=== PATIENT | male | born 1935 | race Caucasian/White ===

== ENCOUNTER 2018-06-17 23:12 | Emergency (ER) | payer OTHER ==
[~2018-06-17] VITALS: Ht 177.8 cm; Wt 79.8 kg
[~2018-06-17 23:12] MED LIST: ASPIR 8181 MG PO; ASPIRIN EC81 M1 PO; ATENOLOL 50MG T50 MG PO; CENTRUM SILVER1 EAC4 PO; CIPROFLOXACIN500 M1 PO; COLACE100 MG PO; FLAGYL500 MG PO; FLOMAX0.4 MG PO; FLORANEX TABLE1 EACH PO; FUROSEMIDE 20 M20 MG PO; HYDROCODON-ACE1 EAC7 PO; IRON PO; IRON-150 TABLE1 EACH PO; KEFLEX500 MG PO; KLOR-CON 1010 MEQ PO; LEVOXYL50 MCG; LISINOPRIL10 MG PO; LUTEIN; LUTEIN PO; LYCOPENE; LYCOPENE PO; MAGOX 400400 MG PO; RAPAFLO8 MG PO; SENNA PO; SPIRIVA INH; SYNTHROID125 MCG PO; TRICOR145 MG PO; ULORIC40 MG PO
[2018-06-18] MEDS ORDERED: KEFLEX500 M1 PO (01:49)
[2018-06-18 02:30] VITALS: BP 149/73
== END 2018-06-18 02:30 | disposition home or self-care (01) ==
LOC: ER 23:12
DX: R04.0 Epistaxis (principal); G47.00 Insomnia, unspecified; I10 Essential (primary) hypertension; E78.5 Hyperlipidemia, unspecified; M10.9 Gout, unspecified; I71.4 Abdominal aortic aneurysm, without rupture; E03.9 Hypothyroidism, unspecified; M19.90 Unspecified osteoarthritis, unspecified site; G89.29 Other chronic pain; I25.10 Atherosclerotic heart disease of native coronary artery without angina pectoris; M54.9 Dorsalgia, unspecified; J44.9 Chronic obstructive pulmonary disease, unspecified; L40.9 Psoriasis, unspecified; Z85.46 Personal history of malignant neoplasm of prostate; Z85.118 Personal history of other malignant neoplasm of bronchus and lung; Z85.818 Personal history of malignant neoplasm of other sites of lip, oral cavity, and pharynx; Z87.891 Personal history of nicotine dependence; Z88.8 Allergy status to other drugs, medicaments and biological substances; Z86.2 Personal history of diseases of the blood and blood-forming organs and certain disorders involving the immune mechanism; Z95.5 Presence of coronary angioplasty implant and graft

== ENCOUNTER → 2019-03-16 | Outpatient (CLI) | payer OTHER ==
[~2019-03-16] MED LIST changes: +KEFLEX500 M1 PO
== END ==
LOC: HYPER 07:35
DX: L89.152 Pressure ulcer of sacral region, stage 2 (principal); L89.322 Pressure ulcer of left buttock, stage 2; L89.311 Pressure ulcer of right buttock, stage 1; L89.321 Pressure ulcer of left buttock, stage 1; J44.9 Chronic obstructive pulmonary disease, unspecified; Z85.46 Personal history of malignant neoplasm of prostate; Z85.118 Personal history of other malignant neoplasm of bronchus and lung; Z87.891 Personal history of nicotine dependence

== ENCOUNTER → 2019-04-10 | Outpatient (CLI) | payer OTHER | LOC: HYPER 08:07 | DX: R21 Rash and other nonspecific skin eruption (principal); R23.4 Changes in skin texture; J44.9 Chronic obstructive pulmonary disease, unspecified; Z85.46 Personal history of malignant neoplasm of prostate; Z85.118 Personal history of other malignant neoplasm of bronchus and lung; Z87.891 Personal history of nicotine dependence ==

== ENCOUNTER → 2019-04-27 | Outpatient (CLI) | payer OTHER | LOC: HYPER 08:16 | DX: L30.9 Dermatitis, unspecified (principal); R21 Rash and other nonspecific skin eruption; R23.4 Changes in skin texture; J44.9 Chronic obstructive pulmonary disease, unspecified; Z85.46 Personal history of malignant neoplasm of prostate; Z85.118 Personal history of other malignant neoplasm of bronchus and lung; Z87.891 Personal history of nicotine dependence ==

== ENCOUNTER 2019-05-11 09:47 | Emergency (ER) | payer OTHER ==
[~2019-05-11] VITALS: Ht 177.8 cm; Wt 77.6 kg
[~2019-05-11 09:47] MED LIST changes: -AUGMENTIN 875-1 EACH PO; -COUGH SYRU100 MG/5 M PO; -DOXYCYCLINE 10100 MG PO; -LEVOTHYROXINE88 MCG PO; -MUCINEX DM ER1 EACH PO; -SUPER THERAVIT1 EACH PO; -TESSALON PERLE100 M1 PO; -VENTOLIN HFA 1818 GM INH
[2019-05-11] MEDS ORDERED: SUPER THERAVIT1 EACH PO (10:07)
[2019-05-11] MEDS ORDERED: DOXYCYCLINE 10100 MG PO (10:07)
[2019-05-11 10:58] LABS: BASOPHILS 0.2 % (0.0-2.0); EOSINOPHILS 1.8 % (0.0-3.0); HEMATOCRIT 30.2 % (42.0-52.0); HEMOGLOBIN 10.1 gm/dL (14.0-18.0); LYMPHOCYTES 5.2 % (24.0-44.0); MCH 33.4 pg (26.0-34.0); MCHC 33.6 g/dL (28.0-37.0); MCV 99.4 fL (80.0-100.0); MONOCYTES 11.1 % (1.0-8.0); PLATELET COUNT 124 thou/uL (150-400); POLYS 81.7 % (36.0-66.0); RBC 3.04 mil/uL (4.50-6.00); RDW 17.3 % (10.5-14.5); WBC 9.8 thou/uL (4.0-11.0)
[2019-05-11 10:59] LABS: ANION GAP 7 mmol/L (7-16); BUN 44 mg/dL (7-18); CHLORIDE 103 mmol/L (98-107); CO2 30 mmol/L (21-32); CREATININE 1.6 mg/dL (0.7-1.3); GLUCOSE 143 mg/dL (74-106); SODIUM 140 mmol/L (136-145)
[2019-05-11 11:09] LABS: ALBUMIN 3.4 g/dL (3.4-5.0); SGOT 35 U/L (15-37); SGPT 22 U/L (30-65); TOTAL BILIRUBIN 0.6 mg/dL (<0.1-1.0); TOTAL PROTEIN 7.8 g/dL (6.4-8.2); TROPONIN-I <0.06 ng/mL (<0.06)
[2019-05-11] MEDS ORDERED: TESSALON PERLE100 M1 PO (11:20)
[2019-05-11] MEDS ORDERED: VENTOLIN HFA 1818 GM INH (11:37)
[2019-05-11] MEDS ORDERED: MUCINEX DM ER1 EACH PO (11:37)
[2019-05-11 12:01] VITALS: BP 141/44
== END 2019-05-11 12:35 | disposition home or self-care (01) ==
LOC: ER 09:47
PROVIDERS: Emergency Medicine
DX: J20.9 Acute bronchitis, unspecified (principal); J44.1 Chronic obstructive pulmonary disease with (acute) exacerbation; C91.40 Hairy cell leukemia not having achieved remission; I12.9 Hypertensive chronic kidney disease with stage 1 through stage 4 chronic kidney disease, or unspecified chronic kidney disease; I71.4 Abdominal aortic aneurysm, without rupture; N18.9 Chronic kidney disease, unspecified; E78.5 Hyperlipidemia, unspecified; E03.9 Hypothyroidism, unspecified; M10.9 Gout, unspecified; M54.9 Dorsalgia, unspecified; G89.29 Other chronic pain; Z95.5 Presence of coronary angioplasty implant and graft; Z86.2 Personal history of diseases of the blood and blood-forming organs and certain disorders involving the immune mechanism; Z85.819 Personal history of malignant neoplasm of unspecified site of lip, oral cavity, and pharynx; Z87.891 Personal history of nicotine dependence; Z91.041 Radiographic dye allergy status; Z88.8 Allergy status to other drugs, medicaments and biological substances

== ENCOUNTER → 2019-05-11 | Outpatient (CLI) | payer OTHER ==
[~2019-05-11] MED LIST changes: +AUGMENTIN 875-1 EACH PO; +COUGH SYRU100 MG/5 M PO; +DOXYCYCLINE 10100 MG PO; +LEVOTHYROXINE88 MCG PO; +MUCINEX DM ER1 EACH PO; +SUPER THERAVIT1 EACH PO; +TESSALON PERLE100 M1 PO; +VENTOLIN HFA 1818 GM INH
--- NOTE | 2019-05-12 07:54 | EKG ---
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: AMY : 1935 Requested By: Han Trujillo Order Number: [id number] MD: Brett Cates Measurements Intervals [place] Rate: 96 P: 56 ME: 223 QRS: -87 QRSD: 154 T: 27 QT: 385 QTc: 487 Interpretive Statements 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
== END ==
LOC: HYPER
DX: L89.321 Pressure ulcer of left buttock, stage 1 (principal); L89.311 Pressure ulcer of right buttock, stage 1; L30.9 Dermatitis, unspecified; J44.9 Chronic obstructive pulmonary disease, unspecified; R21 Rash and other nonspecific skin eruption; R23.4 Changes in skin texture; Z85.46 Personal history of malignant neoplasm of prostate; Z85.118 Personal history of other malignant neoplasm of bronchus and lung; Z87.891 Personal history of nicotine dependence

== ENCOUNTER 2019-05-19 15:43 | Inpatient (IN) | payer OTHER ==
[~2019-05-19] VITALS: Ht 177.8 cm; Wt 75.3 kg
[~2019-05-19 15:43] MED LIST changes: +DOXYCYCLINE 10100 MG PO; +MUCINEX DM ER1 EACH PO; +SUPER THERAVIT1 EACH PO; +TESSALON PERLE100 M1 PO; +VENTOLIN HFA 1818 GM INH
[2019-05-19 16:48] VITALS: BP 135/52
--- NOTE | 2019-05-19 18:22 | NUR ---
PT IS DIRECT ADMIT D/T PNEUMONIA AND DYSPHAGIA. AT BEDSIDE. VSS. PT A&OX4. NO C/O PAIN. PT ON RA. PHOTO OF REDNESS ON BOTTOM IN CHART. ADMISSION ORDERS COMPLETE. PT WILL CONTINUE TO MONITOR.
[2019-05-19 20:07] LABS: HEMATOCRIT 29.8 % (42.0-52.0); HEMOGLOBIN 10.1 gm/dL (14.0-18.0); MCH 33.1 pg (26.0-34.0); MCHC 33.8 g/dL (28.0-37.0); MCV 97.9 fL (80.0-100.0); RBC 3.04 mil/uL (4.50-6.00); RDW 17.9 % (10.5-14.5); WBC 7.2 thou/uL (4.0-11.0)
[2019-05-19 20:26] LABS: ALBUMIN 3.2 g/dL (3.4-5.0); CALCIUM 9.3 mg/dL (8.5-10.1); CREATININE 1.4 mg/dL (0.7-1.3); TOTAL PROTEIN 7.2 g/dL (6.4-8.2)
[2019-05-19 20:49] VITALS: BP 151/63
[2019-05-19 21:45] LABS: TSH 4.683 uIU/mL (0.358-3.740)
[2019-05-20] VITALS (7 sets, daily range): BP systolic 114–141; BP diastolic 48–64
--- NOTE | 2019-05-20 05:17 | NUR ---
ASSUMED PT CARE AT 1900. PT A/OX4, [place], VITAL SIGNS STABLE, ASSESSMENT CHARTED. NO COMPLAINTS OF PAIN OR SOB. ABX STARTED, RESTED WELL THROUGH THE NIGHT. WILL CONTINUE TO MONITOR.
[2019-05-20 05:42] LABS: CALCIUM 9.3 mg/dL (8.5-10.1); CREATININE 1.4 mg/dL (0.7-1.3); MAGNESIUM 1.9 mg/dL (1.8-2.4); POTASSIUM 4.2 mmol/L (3.5-5.1)
[2019-05-20 05:49] LABS: HEMATOCRIT 25.8 % (42.0-52.0); HEMOGLOBIN 8.9 gm/dL (14.0-18.0); MCH 33.5 pg (26.0-34.0); MCHC 34.4 g/dL (28.0-37.0); MCV 97.2 fL (80.0-100.0); RBC 2.66 mil/uL (4.50-6.00); RDW 17.6 % (10.5-14.5); WBC 6.1 thou/uL (4.0-11.0)
[2019-05-20] MEDS ORDERED: LEVOTHYROXINE88 MCG PO (08:04)
--- NOTE | 2019-05-20 13:16 | NUR ---
I have reviewed the documentation by SHERYL DUFFY from 05/20/19 to 05/20/19 and I concur with it. MELANIE LOVELACE
--- NOTE | 2019-05-20 16:55 | NUR ---
met with patient, just left for the day. Patient resides at home with . All needs on one level of home. Patient uses a walker for ambulation. patient admits with cough, dysphagia. He completed video swallow. GI discussed options with including peg tube. Patient participated with therapy who recommends post acute care. Nutrional status to be addressed. DC planning, possible post acute care, Home pallative care or hospice.
--- NOTE | 2019-05-20 17:48 | NUR ---
ASSUMED CARE OF PT AT SHIFT CHANGE. ASSESSMENTS CHARTED. UNABLE TO GIVE MEDS D/T DYSPHAGIA. VSS. PT A&OX4. NO C/O PAIN. WORKED WITH PT/OT. PT IS SBA WITH WALKER D/T WEAKNESS AND DIZZYNESS. PT FAILED VIDEO SWALLOW TEST, NOW PT AND FAMILY DECIDING WHETHER TO DO A PEG TUBE OR NOT. WILL CONTINUE TO MONITOR AND FOLLOW POC.
--- NOTE | 2019-05-20 19:08 | HC ---
[facility] [place] [address] CONSULTATION Name: PRASANNA MODI Room #: 206-P [facility] IN ..#: [id number] Admission: 05/19/19 Attend Phys: Osbaldo Motta MD Discharge: Date of : 35 Report #: [id number] THIS REPORT FOR: //name// CC: Osbaldo Elena MD REASON FOR CONSULTATION: Persistent dyspnea, dysphagia, weight loss. HISTORY OF PRESENT ILLNESS: The patient is an 84-year-old white male who was referred by Dr. Leroy Elena for evaluation of persistent bronchitic symptoms. He has known COPD. The patient has smoked about 50+ years, smoking more than a pack a day. He quit smoking 19 years ago. He was diagnosed with COPD about 8 years ago. He is normally on Spiriva. He is not oxygen dependent. He was doing fairly well until about 4 weeks ago, he started to develop dysphagia. Following this, he started to lose weight. He then developed worsening muscle weakness. Otherwise, denies any fever, night sweats or chills, chest pain, productive cough. He has an extensive medical history. He was diagnosed with oral cancer, undergoing total tooth extraction in 2000, local resection. 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 He is followed closely by Dr. Flowers. For his prostate cancer, he underwent radiation therapy in 2013. He was also diagnosed with lung cancer, undergoing radiation therapy in 2014. Detail of this is not clear at this moment. More than a month ago, he was diagnosed with pressure ulcer. He has been seen by Wound Care. According to the , his health has been declining over the past month. The patient lives with his and she is the sole caregiver. The notes that he has not undergone evaluation regarding his dysphagia. PAST MEDICAL HISTORY: As mentioned above including COPD, history of tobacco use, prostatic cancer as mentioned above, hairy cell leukemia as mentioned above, oral cancer diagnosed in 2000, history of lung cancer 2014, undergoing radiation therapy and details not clear, aortic aneurysm status post aortic stent placement in 2012, insomnia, hypertension, hyperlipidemia, chronic bilateral lower extremity edema, anemia, gout, hypothyroidism, psoriasis, chronic back pain, stage 2 pressure ulcer involving the gluteal area over the past 3 months as mentioned above, hearing impairment and COPD. PAST SURGICAL HISTORY: As mentioned above including total tooth extraction, [facility] [address] [place] [address] CONSULTATION Name: PRASANNA MODI Room #: 206-P [facility] IN ..#: [id number] Admission: 05/19/19 Attend Phys: Osbaldo Motta MD Discharge: Date of : 35 Report #: [id number] bilateral cataract surgery, lid surgery, prior neck surgery. ALLERGIES: FENOFIBRATE, which causes nausea, vomiting, diarrhea; NEXIUM causes diarrhea; CONTRAST DYE, reactions unspecified. MEDICATIONS: List reviewed in the chart and this include Uloric 40 mg once a day, Lasix 20 mg once a day, Synthroid 88 mcg once a day, magnesium supplements, potassium supplements, Flomax 0.4 mg once a day, Spiriva once a day. FAMILY HISTORY: Both parents . Medical problems not specified. SOCIAL HISTORY: Tobacco history as mentioned above. Quit smoking 19 years ago. Denies any alcohol use. He is and lives with his . REVIEW OF SYSTEMS: As mentioned above. It is notable for progressive weight loss, muscle weakness and debility. PHYSICAL EXAMINATION: VITAL SIGNS: Temperature is 97.7 degrees Fahrenheit, pulse is 82, respiratory rate is 20, blood pressure is 90/52 mmHg, 88/52 on the left arm, saturation 94% on room air. GENERAL: He appears mildly emaciated, weak, ashen looking. HEENT: Normocephalic, atraumatic. NECK: Supple, without lymphadenopathy or thyromegaly. CHEST: Breath sounds are fair air movement, crackles in the bases, more so on the left base than the right. Mild expiratory wheezes. CARDIOVASCULAR: Normal S1, S2. There are no murmurs or gallop. There is no JVD, no bruit. Pulses are 2+/4+ bilaterally. ABDOMEN: Soft, nontender, no organomegaly or masses felt. GENITOURINARY: Deferred. RECTAL: Deferred. EXTREMITIES: There is no cyanosis or clubbing. Notable 1-2+ bilateral pretibial edema. NEUROLOGIC: Grossly intact, though appears to be moderately weak. LABORATORY DATA: Pending. Prior chest x-ray has been reviewed. He has a right apical nodule previously [place] [address] chest. Current chest x-ray reviewed and showing mild haziness in the right apex, otherwise no obvious infiltrates. The rest of the laboratory data is pending. IMPRESSION: 1. Progressive weight loss, dysphagia, weakness in this 84-year-old white male. Etiology is unclear, but concerning for occult neoplasm in particular gastrointestinal tract. We will recommend GI consultation, video swallow, etc. 2. Persistent dyspnea, cough, examination revealed crackles. The patient may have an ongoing lower respiratory tract infection or pneumonia. [address] [place] [address] CONSULTATION Name: PRASANNA MODI Room #: 206-P ADM IN .R.#: [id number] Admission: 05/19/19 Attend Phys: Osbaldo Motta MD Discharge: Date of : 35 Report #: [id number] 3. Chronic obstructive pulmonary disease, very severe impairment, baseline FEV1 of 0.53 liters or 19% predicted. 4. Progressive muscle weakness, debility due to above, ? other causes such as neuromuscular. 5. Multiple cancer history in the past including oral cancer in 2000, prostate cancer, hairy cell leukemia, history of lung cancer status post radiation therapy in 2014. 6. Abdominal aortic aneurysm, status post stent placement. 7. Chronic back pain, status post prior back surgery. 8. Chronic lower extremity edema. 9. Gout. 10. Hypothyroidism. 11. Pressure ulcer involving the gluteal fold stage 2, recent onset over the last 3 months. 12. Cachexia, suspect severe mild protein-calorie malnutrition. RECOMMENDATION: With recommend broad-spectrum antibiotics for presumed pneumonia, bronchodilators and corticosteroids. We would also recommend evaluating dysphagia and weight loss, GI consultation will be recommended along with swallowing evaluation. Nutritional status also should be evaluated. Imaging study of the chest may be helpful given his past history of lung cancer along with right apical nodule. With worsening weakness and malnutrition over the past month or so, the patient may benefit from extended facility following this hospitalization. We will defer to primary medicine team and case management. Additional recommendation should also include recommend DVT and GI prophylaxis. Thank you for the consultation. <ELECTRONICALLY SIGNED> By: Kirk Henderson MD 05/20/19 [id number] Kirk Henderson MD /ellen
[2019-05-21 00:09] VITALS: BP 133/65
--- NOTE | 2019-05-21 01:35 | NUR ---
PATIENT IS AN IN-HOUSE TRANSFER FROM THE CORONARY CARE UNIT. PATIENT ARRIVED AT APPROX. 1930, IS IN CHAIR WITH FAMILY AT BEDSIDE. ASSUMED CARE OF PATIENT SHORTLY AFTER TRANSFER. P[ATIENT IS A&OX4 WITH SOME EXPRESSIVE APHASIA D/T NO TEETH AND PART OF TOUNGE MISSING. PATIENT IS NPO D/T FAILING SWALLOW STUDY BUT HAS MOISTURE SWABS AT BEDSIDE TO BE USED NEEDED. VSS, O2 SAT IS 93% ON ROOM AIR. PATIENT DID NOT RECIEVE HIS PO MUCINEX TONIGHT. FEED PROJECT ENGINEER PRACTIONER CALLED TO D/C PO MEDS AND START IV PUSHES SCOTT. PHARMACY TO CALL BACK W/ VERIFICATION. PATIENT VOIDED 100CC AROUND MIDNIGHT. WILL CONTINUE TO MONITOR URINARY FUNCTION D/T RETENTION. PATIENT HAS A HX OF REFUSING STRAIGHT CATHERIZATION. EDUCATION TO BE REINFORCED IN AM AFTER SCANNING BLADDER. ASSESSMENT CHARTED, PATIENT DENIES PAIN OR ANY NEEDS AT THIS TIME. PATIENT WILL REMAIN IN RECLINER CHAIR W/ FEET ELEVATED TONIGHT. PATIENT IS PENDING DECISION ON PEG PLACEMENT OR PALLIATIVE CARE. FALL PRECAUTIONS IN PLACE. WILL CONTINUE TO MONITOR AND FOLLOW PLAN OF CARE
--- NOTE | 2019-05-21 04:54 | NUR ---
SPOKE TO PHARMACIST REGARDING NEW ORDERS FOR SYNTHROID; PATIENT WILL START RECIEVING IV SYNTHROID @ APPROPRIATE DOSE. MUCINEX TO BE HELD UNTIL PROVIDER AND PATIENT DECIDE WHAT PLAN TO FOLLOW. FLOMAX IS HELD ALSO; PATIENT WILL BE BLADDER SCANNED QSHIFT AND NEEDED. WILL CONTINUE TO MONITOR
--- NOTE | 2019-05-21 05:44 | HC ---
[facility] [place] [address] [place] [address] CONSULTATION Name: PRASANNA MODI Room #: 403-P [facility] IN .R.#: [id number] Admission: 05/19/19 Attend Phys: Osbaldo Motta MD Discharge: Date of : 35 Report #: [id number] THIS REPORT FOR: //name// CC: Osbaldo Elena MD DATE OF SERVICE: 05/20/2019 NEUROLOGY CONSULTATION The patient of Dr. Leroy Elena and Dr. Osbaldo Motta. CHIEF COMPLAINT: This is a very pleasant 84-year-old male whom I am asked to evaluate for possible PEG tube placement due to his oropharyngeal dysphagia which is severe. It has been recommended that he be n.p.o. completely by speech therapy based on their findings. The patient has had pulmonary aspiration and has bilateral aspiration pneumonia. I spoke with the patient and his at length about the speech therapy, swallow study results and we discussed all the details completely. PAST MEDICAL HISTORY: Significant for hairy cell leukemia. He has a new spiculated lung mass. 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 He has a history of prostate cancer. He has a history of COPD, decubitus ulcers. He has been losing weight lately, unable to eat much, coughing a lot. He has a pneumonia. He has a history of diverticulitis, hypothyroidism. He has an abdominal aortic stent for abdominal aortic aneurysm. He also has a history of hypertension, hyperlipidemia. He normally has pedal edema bilaterally. He also has gout, psoriasis, arthritis and stage 3 kidney disease. PAST SURGICAL HISTORY: Includes an abdominal aortic stent graft placed in 2012. He has had bilateral cataract surgeries and he has had bilateral eyelid surgeries and some neck surgery. ALLERGIES: FENOFIBRATE that caused nausea, vomiting, diarrhea, IV CONTRAST DYE and NEXIUM causes diarrhea. CURRENT MEDICATIONS: Prior to admission included Ventolin inhaler and Spiriva inhaler. He also takes Uloric, Lasix, Synthroid, Mag-Ox, multiple vitamins, potassium chloride, and Flomax. SOCIAL HISTORY: The patient used to smoke. Drinks alcohol occasionally. [facility] [address] [place] [address] CONSULTATION Name: PRASANNA MODI Room #: 403-P [facility] IN [facility].#: [id number] Admission: 05/19/19 Attend Phys: Osbaldo Motta MD Discharge: Date of : 35 Report #: [id number] FAMILY HISTORY: Negative for colon polyps, colon cancer, Crohn's disease and ulcerative colitis. REVIEW OF SYSTEMS: The patient complains of dysphagia to solids and liquids. He denies any odynophagia. He does have aspiration pneumonia, but is most likely related to this dysphagia. He has no problems with gastroesophageal reflux, hiatal hernia, peptic ulcer disease, nausea or vomiting. His weight has been dropping because he has been unable to eat much. Appetite is decreased. He has had diarrhea in general. Denies any hematemesis, hematochezia or melena. PHYSICAL EXAMINATION: GENERAL: Reveals a well-developed, well-nourished 84-year-old white male who is chronically ill appearing, pale. He is up in the chair and he is awake and he seems alert. He is somewhat hard of hearing. HEENT: Normocephalic, atraumatic, and anicteric. HEART: Rate and rhythm are regular with a normal S1 and S2. LUNGS: He has wheezes and rhonchi bilaterally posteriorly in the lower lobes. ABDOMEN: Soft, diffusely mildly tender. Bowel sounds are present in all 4 quadrants. There is no palpable organomegaly or mass. There is tenderness, but no rebound or guarding. IMPRESSION: 1. New onset of oropharyngeal dysphagia that is quite severe and this led to bilateral pulmonary aspiration and pneumonia. The patient is in need of a feeding tube if he wishes to prolong his life. He is making the decision now about whether or not that is the way he would like to proceed. 2. History of hairy cell leukemia. 3. New spiculated lung mass. 4. Oral cancer of the tongue. 5. Prostate cancer. 6. Chronic obstructive pulmonary disease. 7. Decubitus skin ulcers. 8. Weight loss. 9. Hypothyroidism. 10. Hypertension. 11. Hyperlipidemia. 12. Abdominal aortic aneurysm with aortic stent graft. 13. Gout. 14. Psoriasis and arthritis. 15. Stage 3 kidney disease. 16. History of diverticulitis. RECOMMENDATIONS: 1. I did speak at length with the patient and his about the speech therapy swallow study results and I presented him with three options. He is at extremely high risk of pulmonary aspiration with any type of oral intake and he [address] [address] CONSULTATION Name: PRASANNA MODI Room #: 403-P [facility] IN M.R.#: [id number] Admission: 05/19/19 Attend Phys: Osbaldo Motta MD Discharge: Date of : 35 Report #: [id number] may have aspiration even without any oral intake based on his own saliva. I suggested that an EGD with PEG tube could be placed if that is the way he wished to proceed and I described how the procedure is done what the possible risks and benefits are and I also explained that this will not prevent pulmonary aspiration. He still will try to swallow his own saliva and it will probably go into his lungs and cause pneumonia. 2. If the PEG is decided against, the patient to continue with his current lifestyle, understanding of aspiration pneumonia will occur again and he will suffer the scenario repeatedly. 3. He could consider palliative care. The patient closed his eyes and seems that he did not want to speak any further about this. His though did want to talk more about palliative care and she explained that her is going to have to make a decision about what he wants to do for the rest of his life. She says that if he decides not to have the PEG tube placed, then they would like to talk to the palliative care physician about hospice. I explained that the patient will await their decision that should not feel rushed as this is a very important life decision and that we would visit daily and be helpful as possible no matter what they decided. They was very thankful and I will follow up again with them in the morning. Thank you very much once again for allowing me to participate in her care, Dr. Elena and Dr. Motta. <ELECTRONICALLY SIGNED> By: Marietta Romeo DO 05/21/19 0544 [id number] 21 Marietta Romeo DO /nt
[2019-05-21 06:56] VITALS: BP 152/67
--- NOTE | 2019-05-21 11:58 | NUR ---
SW reviewed chart and spoke with nursing and attending physician. Pt was transferred to [facility] from . SW met with pt and at bedside. Pt's provided copy of pt's living will to [facility]. Copy placed on chart. Pt's had multiple questions about possible peg tube placement and then potentially hospice care of post-acute placement. SW discussed hospice services and also SNF v. LTC placement if needed. 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 Attending physician to meet with pt and to discuss plan of care. SW is following to assist as needed with discharge planning.
[2019-05-21 15:05] VITALS: BP 139/70
[2019-05-22 00:26] VITALS: BP 121/64
--- NOTE | 2019-05-22 02:40 | NUR ---
ASSUMED PT CARE ON 05/21/19 APPROX 191. PT IS AROUSABLE BUT RESTING IN ROOM. PT IS HARD OF HEARING. PT HAS A COUGH AND PRODUCES MUCOUS BUT SWALLOWS IT. PT HAS A LEFT FOREARM NS RUNNIGN AT 100 ML/HR. I ASKED PT IF HE WANTED TO MOVE TO BED BUT HE PERFERS TO SIT IN THE CHAIR. PT HAS 2+ EDEMA IN BLE. I ELEVATED THE PT'S FEET BUT HE PUSHES THE FEET DOWN TO SIT UP AND COUGH. PT REFUSED EVENING MEDICATION. WHEN I SUGGESTED GETTING UP SO I COULD REPOSITION HIM OR GET HIM TO BED HE REFUSED. I PUT WARM BLANKETS ON THE PT. PT IS RESTING IN HIS ROOM. I HUNG THE ANTIBIOTIC AND A NEW BAG OF FLUIDS. WILL CONTINUE TO MONITOR.
--- NOTE | 2019-05-22 07:10 | HC ---
[facility] [place] [address] [place] [address] CONSULTATION Name: PRASANNA MODI Room #: 403-P ADM IN M.R.#: [id number] Admission: 05/19/19 Attend Phys: Osbaldo Motta MD Discharge: Date of : 35 Report #: [id number] THIS REPORT FOR: //name// CC: Osbaldo Henderson MD HISTORY OF PRESENT ILLNESS: The patient is an 84-year-old patient with known history of hairy cell leukemia, who was admitted for bronchitis and cough of about 4 weeks' duration. His counts are slightly low. He is also noted to have a spiculated lung mass which may have enlarged compared to film in the system from about 2015. If I recall correctly this was treated with SBRT in about 2016. The patient denies any fever, states he has been coughing for about 4 weeks. He has lost about 5 pounds of weight. His bowels have been a little bit slow. He is passing his urine okay. No skin rash. He is not aware of any lymph nodes. PAST MEDICAL HISTORY: Notable for the hairy cell leukemia, history of prostate cancer, he has a history of lung cancer s/p SBRT about 2016, also history of oral cancer, history of hypothyroidism, COPD, hypertension, diverticulitis, hyperlipidemia, aortic stent in the past, psoriasis, and hearing deficit. SOCIAL HISTORY: The patient smoked about a pack and a half in the past, quit greater than a year ago. No significant alcohol, no street drugs. CURRENT MEDICATIONS: At this time include magnesium oxide 400 daily, febuxostat 40 mg daily, furosemide 20 daily, tamsulosin 0.4 daily, ipratropium and albuterol respiratory therapy q. 6 while awake, levothyroxine 125 mcg daily, Zosyn 3.375 grams IV q. 8 hours, Lovenox 40 mg at bedtime, guaifenesin ER 1200 b.i.d., MiraLax 17 grams daily as needed. PHYSICAL EXAMINATION: GENERAL: The patient appears his stated age. VITAL SIGNS: Blood pressure is 141/64, O2 sat 93, respirations 16, pulse 77. He is an elderly male. He is pleasant. His speech and thought pattern appeared to be normal, allowing for his dentition issues. LYMPHATICS: No enlarged lymph nodes in the supraclavicular, cervical, axillary or inguinal region. ABDOMEN: Without definite masses. EXTREMITIES: Without clubbing or cyanosis. There is maybe some trace edema. LABORATORY DATA: Lab review here notable for BUN of 31, creatinine 1.4. [address] [address] CONSULTATION Name: PRASANNA MODI Room #: 403-P [facility] IN M.R.#: [id number] Admission: 05/19/19 Attend Phys: Osbaldo Motta MD Discharge: Date of : 35 Report #: [id number] count 7.2, hemoglobin 10.1 on admission, today 8.9. Usually in the last several years, he has ranged around 9.4-9.1. MCV 97.2, platelets 95 which are stable for this patient in recent times. CAT scan is done, does not show any splenomegaly or lymphadenopathy, does raise a question of a spiculated lung mass and also does not have a spleen, does also have some questionable changes for pneumonitis and tree-in-bud type changes. ASSESSMENT AND PLAN: 1. Hairy cell leukemia. Counts are slightly low. We will continue monitoring. No transfusions at this time. We will get records from the office. 2. Spiculated lung mass w hx of lung cancer treated with SBRT . We will check [facility] for more recent CAT scans. We will also consider consultation with pulmonary. 3. Bronchitis, pneumonitis. Aerosols and antibiotics per others. 4. History of chronic obstructive pulmonary disease. Aerosols per others. 5. Hypertension. Meds per others. 6. History of prostate cancer, not known to be recurrent. 7. History of oral cancer, not known to be recurrent. 8. Hypothyroid, replace. <ELECTRONICALLY SIGNED> By: Jun Flowers MD 05/22/19 0710 [id number] [id number] Jun Flowers MD /nt
[2019-05-22 07:55] VITALS: BP 142/62
[2019-05-22 08:33] VITALS: BP 142/62
[2019-05-22] MEDS ORDERED: COUGH SYRU100 MG/5 M PO (12:45)
[2019-05-22] MEDS ORDERED: AUGMENTIN 875-1 EACH PO (12:48)
--- NOTE | 2019-05-22 13:58 | NUR ---
DISCHARGE NOTE: SW reviewed chart and spoke with nursing and attending physician. Pt is medically stable for discharge home today with hospice. Pt will have a Perez catheter placed prior to discharge. SW met with pt and at bedside to discuss discharge plan. Pt and are agreeable with discharge plan. SW explained process for hospice admission at home. Pt will need [facility] van transportation home. SW confirmed pt s home address. Director of Case Mgmt approved [facility] van transportation. SW arranged [facility] van transportation via [employer] for [id number]. Hospice to meet pt at home around 1500. FELISA confirmed plans with Leni at [facility]. SW faxed finalized d/c orders/summary to [facility] and confirmed info was received. No additional SW needs identified at this time, but is available to assist should needs arise.
--- NOTE | 2019-06-01 14:18 | HC ---
[facility] [place] [address] CONSULTATION Name: PRASANNA MODI Room #: 403-P [facility] IN ..#: [id number] Admission: 05/19/19 Attend Phys: Osbaldo Motta MD Discharge: 05/22/19 Date of : 35 Report #: [id number] THIS REPORT FOR: //name// CC: Osbaldo Elena DATE OF SERVICE: 05/20/2019 HISTORY OF PRESENT ILLNESS: The patient is an 84-year-old male. He is pleasant and conversational, alert and oriented x 3, was initially here at the hospital for shortness of air and a cough, he has had for about 4 weeks. He went to see his primary care physician and was told he needed to go and see his wound care doctor about wounds on his buttocks. At that time, his wound care doctor I am not sure who that is was told him that he had a need to go to the hospital because of his cough that his lung sounds were not good. I was asked to see him today for wounds to his buttocks bilaterally. REVIEW OF SYSTEMS: Negative with the exception of his skin, which is the most associated dermatitis to both of his buttocks. CONSTITUTIONAL: He is alert. He is oriented x 4, conversational. ENT is negative. RESPIRATORY: Does not appear in any respiratory distress at this time. GENITOURINARY: He does have a history of being incontinent of urine. PSYCHIATRIC: He is alert and oriented. His affect is normal. He is conversational with us. Eyes are PERRLA, EOMI is intact. CARDIOVASCULAR: Regular rate and rhythm. GASTROINTESTINAL: Soft, nontender. ALLERGIES: FENOFIBRATE, CONTRAST DYE and NEXIUM. 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 Hard of hearing, COPD. He has had prostate cancer with radiation therapy, last was in 2014. He has no significant family history. He does not use drugs. He does drink alcohol daily. He is a former smoker that quit greater than 1 year ago and was about a one half or a 2-pack a day delores for 45 years. PHYSICAL EXAMINATION: GENERAL: Overall, he is alert and oriented x 3, does not appear to be in any respiratory distress at this time. He is conversational and very pleasant. [facility] [address] [place] [address] CONSULTATION Name: PRASANNA MODI Room #: 403-P [facility] IN ..#: [id number] Admission: 05/19/19 Attend Phys: Osbaldo Motta MD Discharge: 05/22/19 Date of : 35 Report #: [id number] HEENT: He is PERRLA. EOMs are intact. He has dry mucous membranes, no dentition and also has hearing aids in. CARDIOVASCULAR: He has a regular rate and rhythm. RESPIRATORY: He does not appear to be in any respiratory distress at this time. ABDOMEN: Soft and nontender, nondistended. NEUROLOGIC: Cranial nerves 2-12 appear intact. He does move all extremities symmetrically without any deficits. On his skin, he does have a most associated dermatitis to both of his buttocks. There does not appear to be any open areas at this time. He also has some 2+ pedal edema. PSYCHIATRIC: Normal mood, normal affect. CIRCULATORY: He has +2 pedal pulses. PLAN: We will do a barrier cream to the most associated dermatitis to both buttocks area that can be done 3 times a day and p.r.n. PT, OT as tolerated for his debility. We are going to continue all of his current meds. We are going to provide him with protein rich diet for max healing. He does have mild protein-calorie malnutrition with an albumin of 3.2. Thank you for the opportunity to allowing me to care for this patient. We will continue to follow him with the wound care rounds. <ELECTRONICALLY SIGNED> By: TAMARA Muñiz 06/01/19 1418 [id number] TAMARA Muñiz /ellen
== END 2019-05-22 16:03 | disposition hospice, home (50) | DRG 177 ==
LOC: 2N 15:43 → 4N 05-20 19:34
PROVIDERS: Internal Medicine; ADMIT Hospitalist
DX: J69.0 Pneumonitis due to inhalation of food and vomit (principal); E43 Unspecified severe protein-calorie malnutrition; C91.40 Hairy cell leukemia not having achieved remission; J44.0 Chronic obstructive pulmonary disease with (acute) lower respiratory infection; G47.00 Insomnia, unspecified; E78.5 Hyperlipidemia, unspecified; G89.29 Other chronic pain; M54.9 Dorsalgia, unspecified; I71.4 Abdominal aortic aneurysm, without rupture; M10.9 Gout, unspecified; E03.9 Hypothyroidism, unspecified; R13.12 Dysphagia, oropharyngeal phase; R91.8 Other nonspecific abnormal finding of lung field; L40.9 Psoriasis, unspecified; N40.0 Benign prostatic hyperplasia without lower urinary tract symptoms; N18.3 Chronic kidney disease, stage 3 (moderate); L89.322 Pressure ulcer of left buttock, stage 2; L89.312 Pressure ulcer of right buttock, stage 2; D64.9 Anemia, unspecified; I12.9 Hypertensive chronic kidney disease with stage 1 through stage 4 chronic kidney disease, or unspecified chronic kidney disease; Z85.46 Personal history of malignant neoplasm of prostate; Z85.118 Personal history of other malignant neoplasm of bronchus and lung; Z91.041 Radiographic dye allergy status; Z68.23 Body mass index [BMI] 23.0-23.9, adult; Z92.3 Personal history of irradiation; Z98.42 Cataract extraction status, left eye; Z98.41 Cataract extraction status, right eye; Z88.8 Allergy status to other drugs, medicaments and biological substances; Z87.891 Personal history of nicotine dependence; Z85.819 Personal history of malignant neoplasm of unspecified site of lip, oral cavity, and pharynx
CPT/HCPCS: 10081; 10194; 10790